=== PATIENT | male | born 1985 | race Hispanic/Latino ===

== ENCOUNTER 2019-05-07 19:10 | Emergency (ER) | payer BC ==
[2019-05-07] MEDS ORDERED: KETOROLAC 30 MG/ML INJ ONE (19:48)
[2019-05-07 19:56] LABS: Absolute Lymphocytes (CBC) 3.1 K/uL (0.7-4.9); Basophils % 0.4 % (0-1.3); Lymphocytes % 25.4 % (15.3-44.8); MPV 8.1 fL (7.6-11.3); RBC Red Blood Cell Count 4.79 M/uL (4.33-5.43)
--- NOTE | 2019-05-07 20:04 | RAD REPORT ---
EXAM DESCRIPTION: CT - Stone Protocol - 05/07/2019 7:53 pm CLINICAL HISTORY: Left lower abdominal pain, testicular tenderness and swelling COMPARISON: None. TECHNIQUE: Axial 5 mm thick images were obtained without oral or IV contrast. The [id number] span s the entirety of the system partially obscuring uppermost abdomen and lung bases. All CT scans are performed using dose optimization technique as appropriate and may include automated exposure control or mA/KV adjustment according to patient size. FINDINGS: No hydronephrosis is present and no obstructing ureteral calculi. No suspicious renal mass es. Isodense masses and pyelonephritis are not excluded on a stone protocol CT scan. No urinary bladd er suspicious finding. No significant adrenal finding. Imaged portions of the liver, spleen and pancreas show no suspicious findings on non-contrast imaging . Liver attenuation is borderline fatty infiltrated. Gallbladder is contracted. No acute gallbladder or biliary tree finding. No suspicious bowel findings. Appendix is normal. No hernia, mass or bulky lymphadenopathy noted. No free air, free fluid or inflammatory stranding. No inguinal lymphadenopathy. No significant bony abnormality. IMPRESSION: No hydronephrosis or obstructing calculus. No acute finding seen. Isodense masses and pyelonephritis are not excluded on stone protocol technique. No inguinal hernia or other abnormality to explain left lower quadrant symptoms.
[2019-05-07 20:12] LABS: ALT/SGPT 32 U/L (12-78); AST/SGOT 12 U/L (15-37); Albumin 3.7 g/dL (3.4-5.0); Alkaline Phosphatase 58 U/L (45-117); BUN Blood Urea Nitrogen 16 mg/dL (7-18); Bicarbonate 28 mmol/L (21-32); Bilirubin Direct < 0.1 mg/dL (0-0.2); Bilirubin Total 0.3 mg/dL (0.2-1.0); Glucose Level 86 mg/dL (74-106); Lipase 127 U/L (73-393); Potassium 4.2 mmol/L (3.5-5.1); Protein, Total 7.1 g/dL (6.4-8.2); Sodium Level 141 mmol/L (136-145)
[2019-05-07 20:58] LABS: Urine Bacteria <20 /HPF (NONE SEEN); Urine Culture Reflex Order NOT NEEDED; Urine RBC NONE SEEN /HPF (NONE SEEN)
[2019-05-07 20:59] LABS: Urine Blood NEGATIVE (NEG); Urine Glucose NEGATIVE (NEG); Urine Protein NEGATIVE (NEG)
--- NOTE | 2019-05-07 21:36 | EDPHYS ---
Physician Documentation [facility] Name: Ruel Mnuiz Age: 34 yrs Sex: Male : 1985 Arrival Date: 05/07/2019 Time: 19:14 Bed 25 Private MD: ED Physician Navi Collier HPI: 05/07 19:45 This 34 yrs old Male presents to ER via Ambulatory with complaints of cp Abdominal Pain, Groin Pain. 19:45 The patient presents with abdominal pain in the left lower quadrant, left groin. Onset: cp The symptoms/episode began/occurred yesterday. Associated signs and symptoms: Pertinent positives: testicular pain. Historical: - Allergies: 19:22 No Known Allergies; aj1 - Home Meds: 19:22 carvedilol oral oral [Active]; Adderall XR Oral [Active]; Amoxicillin Oral [Active]; aj1 - PMHx: 19:22 ADD/ADHD; Hypertension; aj1 - Immunization history:: Flu vaccine is not up to date. - Social history:: Smoking status: Patient uses tobacco products, denies chronic smoking, but will smoke occasionally. - Ebola Screening: : Patient denies travel to an Ebola-affected area in the 21 days before illness onset. ROS: 19:55 Constitutional: Negative for body aches, chills, fever, poor PO intake. cp 19:55 Eyes: Negative for injury, pain, redness, and discharge. cp 19:55 ENT: Negative for drainage from ear(s), ear pain, sore throat, difficulty swallowing, difficulty handling secretions. 19:55 Cardiovascular: Negative for chest pain. 19:55 Respiratory: Negative for cough, shortness of breath, wheezing. 19:55 Abdomen/GI: Positive for abdominal pain, of the left lower quadrant and left groin and left testicle, Negative for vomiting, diarrhea, constipation, black/tarry stool, rectal bleeding. 19:55 Back: Negative for pain at rest, pain with movement. 19:55 : Positive for testicular pain Negative for hematuria, burning with urination. 19:55 All other systems are negative. Exam: 20:00 Constitutional: The patient appears in no acute distress, alert, awake, non-toxic, well cp developed, well nourished. 20:00 Head/Face: Normocephalic, atraumatic. cp 20:00 Eyes: Periorbital structures: appear normal, Conjunctiva: normal, no exudate, no injection, Lids and lashes: appear normal, bilaterally. 20:00 ENT: External ear(s): are unremarkable, Nose: is normal, Mouth: Lips: moist, Oral mucosa: moist, Posterior pharynx: is normal, airway is patent, no erythema, no exudate. 20:00 Chest/axilla: Inspection: normal, Palpation: is normal, no crepitus, no tenderness. 20:00 Cardiovascular: Rate: normal, Rhythm: regular. 20:00 Respiratory: the patient does not display signs of respiratory distress, Respirations: normal, no use of accessory muscles, no retractions, no splinting, no tachypnea, labored breathing, is not present, Breath sounds: are clear throughout, no decreased breath sounds. 20:00 Abdomen/GI: Inspection: abdomen appears normal, Bowel sounds: active, all quadrants, Palpation: soft, in all quadrants, mild abdominal tenderness, in the left lower quadrant, rebound tenderness, is not appreciated, involuntary guarding, is not appreciated. 20:00 : Male external genitalia: tenderness, of the left testicle is noted, that is mild. 20:00 Skin: no rash present. Vital Signs: 19:22 BP 135 / 94; Pulse 93; Resp 18; Temp 98.1; Pulse Ox 100% on R/A; Weight 104.33 kg (R); aj1 Height 5 ft. 8 in. (172.72 cm) (R); 20:32 BP 117 / 80; Pulse 83; Resp 17 S; Pulse Ox 100% on R/A; ca1 21:35 BP 121 / 79; Pulse 87; Resp 17 S; Pulse Ox 100% on R/A; ca1 19:22 Body Mass Index 34.97 (104.33 kg, 172.72 cm) aj1 MDM: 19:29 Patient medically screened. cp 20:00 Differential diagnosis: diverticulitis, Pyelonephritis, Testicular Torsion, cp Ureterolithiasis, urinary tract infection. 21:31 Data reviewed: vital signs, nurses notes, lab test result(s), radiologic studies, CT cp scan, ultrasound. 21:31 Counseling: I had a detailed discussion with the patient and/or guardian regarding: the cp historical points, exam findings, and any diagnostic results supporting the discharge/admit diagnosis, lab results, radiology results, to return to the emergency department if symptoms worsen or persist or if there are any questions or concerns that arise at home. Response to treatment: the patient's symptoms have mildly improved after treatment. 05/07 19:42 Order name: Basic Metabolic Panel; Complete Time: 20:15 /18 21:25 Interpretation: Normal except: GFR 71. 05/07 19:42 Order name: CBC with Diff; Complete Time: 20:15 05/07 20:15 Interpretation: Normal except: WBC 12.1. 05/07 19:42 Order name: Creatinine for Radiology; Complete Time: 20:15 05/07 19:42 Order name: Hepatic Function; Complete Time: 20:15 05/07 19:42 Order name: Lipase; Complete Time: 20:15 05/07 19:42 Order name: Urine Microscopic Only; Complete Time: 21:25 cp 05/07 21:25 Interpretation: Reviewed. 05/07 19:42 Order name: IV Saline Lock; Complete Time: 19:45 05/07 19:42 Order name: Labs collected and sent; Complete Time: 19:45 05/07 19:42 Order name: Urine Dipstick-Ancillary (obtain specimen); Complete Time: 20:21 05/07 19:42 Order name: CT Stone Protocol; Complete Time: 20:25 05/07 20:28 Order name: Urine Dipstick--Ancillary (enter results); Complete Time: 21:25 em1 05/07 21:25 Interpretation: Reviewed. 05/07 20:32 Order name: US Scrotum Testicles cp Administered Medications: 19:48 Drug: TORadol - Ketorolac 15 mg Route: IVP; Site: left antecubital; ca1 20:25 Follow up: Response: No adverse reaction; Pain is decreased ca1 Disposition: 05/07/19 21:32 Discharged to Home. Impression: Lower abdominal pain, unspecified. - Condition is Stable. - Discharge Instructions: Abdominal Pain, Adult, Form - Excuse from Work, School, or Physical Activity. - Prescriptions for Ibuprofen 800 mg Oral Tablet - take 1 tablet by ORAL route every 8 hours As needed take with food; 30 tablet. - Work release form, Medication Reconciliation Form, Thank You Letter, Antibiotic Education, Prescription Opioid Use form. - Follow up: Private Physician; When: 2 - 3 days; Reason: Worsening of condition. - Problem is new. - Symptoms have improved. Signatures: Dispatcher [employer] Ursula Cifuentes RN RN aj1 Marco Sanabria PA PA cp Castro, Manjula RN RN ca1 Corrections: (The following items were deleted from the chart) 21:42 21:32 05/07/2019 21:32 Discharged to Home. Impression: Lower abdominal pain, ca1 unspecified. Condition is Stable. Forms are Medication Reconciliation Form, Thank You Letter, Antibiotic Education, Prescription Opioid Use. Follow up: Private Physician; When: 2 - 3 days; Reason: Worsening of condition. Problem is new. Symptoms have improved. cp
--- NOTE | 2019-05-07 21:36 | ER ---
Nurse's Notes [facility] Name: Ruel Muniz Age: 34 yrs Sex: Male : 1985 Arrival Date: 05/07/2019 Time: 19:14 Bed 25 Private MD: Diagnosis: Lower abdominal pain, unspecified Presentation: 05/07 19:21 Presenting complaint: Patient states: Since yesterday he has been having left lower aj1 abdominal pain. Late last night he noticed that one of his testicles was swollen and tender. Denies fever. Transition of care: patient was not received from another setting of care. Onset of symptoms was May 07, 2019. Risk Assessment: Do you want to hurt yourself or someone else? Patient reports no desire to harm self or others. Initial Sepsis Screen: Does the patient meet any 2 criteria? No. Patient's initial sepsis screen is negative. Does the patient have a suspected source of infection? No. Patient's initial sepsis screen is negative. Care prior to arrival: None. 19:21 Method Of Arrival: Ambulatory aj1 19:21 Acuity: WILTON 3 aj1 Triage Assessment: 19:22 General: Appears in no apparent distress. comfortable, Behavior is calm, cooperative, aj1 appropriate for age. Pain: Complains of pain in left lower quadrant and pelvis. Pain: Pain currently is 7 out of 10 on a pain scale. Neuro: Level of Consciousness is awake, alert, obeys commands. Cardiovascular: Patient's skin is warm and dry. Respiratory: Airway is patent Respiratory effort is even, unlabored, Respiratory pattern is regular, symmetrical. GI: Reports vomiting, Patient currently denies diarrhea. Historical: - Allergies: 19:22 No Known Allergies; aj1 - Home Meds: 19:22 carvedilol oral oral [Active]; Adderall XR Oral [Active]; Amoxicillin Oral [Active]; aj1 - PMHx: 19:22 ADD/ADHD; Hypertension; aj1 - Immunization history:: Flu vaccine is not up to date. - Social history:: Smoking status: Patient uses tobacco products, denies chronic smoking, but will smoke occasionally. - Ebola Screening: : Patient denies travel to an Ebola-affected area in the 21 days before illness onset. Screenin:32 Abuse screen: Denies threats or abuse. Denies injuries from another. Nutritional ca1 screening: No deficits noted. Tuberculosis screening: No symptoms or risk factors identified. Fall Risk IV access (20 points). Assessment: 19:32 General: Appears in no apparent distress. comfortable, Behavior is calm, cooperative, ca1 appropriate for age. Pain: Complains of pain in groin, left femoral area, suprapubic area and left inguinal area and left lower quadrant Pain currently is 8 out of 10 on a pain scale. Pain began 1 day ago. Is intermittent. Neuro: Level of Consciousness is awake, alert, obeys commands, Oriented to person, place, time, situation. Cardiovascular: Heart tones S1 S2 present Capillary refill < 3 seconds Patient's skin is warm and dry. Respiratory: Airway is patent Respiratory effort is even, unlabored, Respiratory pattern is regular, symmetrical, Breath sounds are clear bilaterally. GI: Abdomen is flat, non-distended, Bowel sounds present X 4 quads. Abd is soft X 4 quads Abdomen is tender to palpation in left lower quadrant Reports nausea, vomiting, last night. :. : Reports pain in left scrotum, since yesterday. EENT: No deficits noted. No signs and/or symptoms were reported regarding the EENT system. Derm: Skin is intact, is healthy with good turgor, Skin is pink, warm \T\ dry. Musculoskeletal: Circulation, motion, and sensation intact. Capillary refill < 3 seconds, Range of motion: intact in all extremities. 20:32 Reassessment: Patient appears in no apparent distress at this time. Patient and/or ca1 family updated on plan of care and expected duration. Pain level reassessed. Patient is alert, oriented x 3, equal unlabored respirations, skin warm/dry/pink. 21:35 Reassessment: Patient appears in no apparent distress at this time. Patient is alert, ca1 oriented x 3, equal unlabored respirations, skin warm/dry/pink. Vital Signs: 19:22 BP 135 / 94; Pulse 93; Resp 18; Temp 98.1; Pulse Ox 100% on R/A; Weight 104.33 kg (R); aj1 Height 5 ft. 8 in. (172.72 cm) (R); 20:32 BP 117 / 80; Pulse 83; Resp 17 S; Pulse Ox 100% on R/A; ca1 21:35 BP 121 / 79; Pulse 87; Resp 17 S; Pulse Ox 100% on R/A; ca1 19:22 Body Mass Index 34.97 (104.33 kg, 172.72 cm) aj1 ED Course: 19:14 Patient arrived in ED. cf2 19:21 Triage completed. aj1 19:22 Arm band placed on Patient placed in an exam room. aj1 19:24 Marco Sanabria PA is PHCP. cp 19:24 Navi Collier MD is Attending Physician. cp 19:25 Manjula Erazo RN is Primary Nurse. ca1 19:32 Patient has correct armband on for positive identification. Placed in gown. Bed in low ca1 position. Call light in reach. Side rails up X 1. Pulse ox on. NIBP on. Warm blanket given. 19:45 No provider procedures requiring assistance completed. Initial lab(s) drawn, by me, ca1 sent to lab. Inserted saline lock: 20 gauge in left antecubital area, using aseptic technique. Blood collected. 19:52 CT completed. Patient tolerated procedure well. Patient moved to CT via wheelchair. ga Patient moved back from CT. 19:57 CT Stone Protocol Sent. rv 20:01 CT Stone Protocol In Process Unspecified. EDMS 21:12 US Scrotum Testicles In Process Unspecified. EDMS 21:41 IV discontinued, intact, bleeding controlled, No redness/swelling at site. Pressure ca1 dressing applied. Administered Medications: 19:48 Drug: TORadol - Ketorolac 15 mg Route: IVP; Site: left antecubital; ca1 20:25 Follow up: Response: No adverse reaction; Pain is decreased ca1 Outcome: 21:32 Discharge ordered by MD. cp 21:41 Discharged to home ambulatory, with significant other. ca1 21:41 Condition: stable 21:41 Discharge instructions given to patient, Instructed on discharge instructions, follow up and referral plans. Demonstrated understanding of instructions, follow-up care, medications, Prescriptions given X 1. 21:42 Patient left the ED. ca1 Signatures: Dispatcher [employer] EDMS Ursula Martinez RN RN aj1 Marco Sanabria PA PA cp Armen Hernandez Ronaldo, RN RN rv Manjula Erazo RN RN ca1 Madisyn Campbell cf2 Corrections: (The following items were deleted from the chart) 19:40 19:32 GI: Abdomen is flat, non-distended, Bowel sounds present X 4 quads. Abd is soft X ca1 4 quads Abdomen is tender to palpation in left lower quadrant ca1
--- NOTE | 2019-05-07 22:27 | RAD REPORT ---
EXAM DESCRIPTION: US - Scrotum Testicles - 05/07/2019 9:10 pm CLINICAL HISTORY: left testicle pain COMPARISON: No comparisons FINDINGS: The right testicle 3.4 x 3.2 x 2.5 cm. No intratesticular masses or evidence of testicular torsion. The left testicle 4.6 x 3.4 x 2.3 cm. No intratesticular masses or evidence of testicular torsion. Eq uivocal increase in flow to the left testicle. Both epididymides are normal in size and appearance. Mild fluid is present in the scrotal sac bilaterally. IMPRESSION: Equivocal findings of mild left orchitis. No evidence of testicular torsion or mass.
[2019-05-08 03:07] VITALS: TEMP 98.1; O2SAT 100
[2019-05-08 03:09] VITALS: BP 121/79
== END 2019-05-07 21:42 | disposition home or self-care (01) ==
LOC: ER 19:10
DX: R10.30 Lower abdominal pain, unspecified (principal); I10 Essential (primary) hypertension; F90.9 Attention-deficit hyperactivity disorder, unspecified type; Z72.0 Tobacco use
CPT/HCPCS: 36415; 74176; 76377; 76870; 80048; 80076; 81003; 81015; 83690; 85025

== ENCOUNTER 2021-04-06 11:40 | Emergency (ER) | payer BC ==
--- OUTSIDE RECORDS SUMMARY | 2021-04-06 11:49 | XMS REPORT | Continuity of Care Document ---
:1985 Author Organization [facility] t Address [address] [place] [address] [address] [place] [address] Care Team Providers Name Role Phone Staewen Attending Clinician Unavailable Problems This patient has no known problems. Allergies, Adverse Reactions, Alerts This patient has no known allergies or adverse reactions. Medications This patient has no known medications. Procedures This patient has no known procedures. Results Test Description Test Time Test Comments Results Result [facility] e Comments MRI ELBOW JNT LT 2021-03-15 WO 09:31:46 [facility] : 1985 Sex: M CL INICAL INDICATION: S46.219D, Strain of muscle, fascia and tendon of other parts of biceps, unspecified arm, subsequent encounter . MODALITY: [employer] 3T MRITECHNIQUE: Multiplanar multi sequence MRI examination of the left elbow was performed.IMPRESSION: 1. Moderate grade partial tear of the distal biceps tendon and grade 2 strain involving the distal biceps myotendinous junction.2. Fluid in the bicipital radial bursa.3. Small left elbow joint effusion.FINDINGS:COM PARISON: noneTENDONS: Mild common extensor tendinosis is present. The common extensor tendon is intact. The common flexor tendon is intact. Triceps and brachialis tendons are intact. Moderate grade partial tear is evident involving the short head component of the distal biceps tendon. The long head component of the tendon remains intact. There is edema and apparent mild architectural distortion at the distal biceps myotendinous junction, consistent with grade 2 strain. Small fluid collection localizes to the bicipitoradial bursa.LIGAMENTS: Ulnar collateral ligament is intact. The anterior band appears unremarkable. Lateral ulnar collateral ligament is intact.OSSEOUS STRUCTURES AND CARTILAGINOUS SURFACES: No fractures or destructive osseous lesions are detected. Marrow signal is unremarkable. No high-grade chondral lesions are detected.CUBITAL TUNNEL: Mass or cyst within the cubital tunnel is not seen. Ulnar nerve appears unremarkable.MISCELLA NEOUS FINDINGS: Small left elbow joint effusion is present.
--- NOTE | 2021-04-06 13:12 | RAD REPORT ---
EXAM DESCRIPTION: RAD - Chest Single View - 04/06/2021 12:49 pm CLINICAL HISTORY: COVID;Cough COMPARISON: None TECHNIQUE: AP portable chest image was obtained 04/06/2021 12:49 pm . FINDINGS: Lung volumes are low. No focal lung parenchymal process confirmed. Heart and vasculature a re normal. No measurable pleural effusion and no pneumothorax. No acute bony abnormality seen. No acu te aortic findings suspected. IMPRESSION: No acute cardiopulmonary process.
--- NOTE | 2021-04-06 15:59 | EDPHYS ---
Physician Documentation [facility] Name: Ruel Muniz Age: 35 yrs Sex: Male : 1985 Arrival Date: 04/06/2021 Time: 11:44 Bed DX2 Private MD: ED Physician Negro Carver HPI: 04/06 15:48 This 35 yrs old Male presents to ER via Ambulatory with complaints of Covid +, rn sob. 15:48 The patient has shortness of breath at rest, with light activity. Onset: The rn symptoms/episode began/occurred today. Duration: The symptoms are intermittent. The patient's shortness of breath is aggravated by exertion, light activity, is alleviated by rest. Associated signs and symptoms: Pertinent positives: non-productive cough, fever, Pertinent negatives: chest pain, hemoptysis, loss of consciousness. Severity of symptoms: At their worst the symptoms were moderate in the emergency department the symptoms have improved. The patient has not experienced similar symptoms in the past. The patient has not recently seen a physician. Patient reports took home test for Covid and was positive, now 3 days symptomatic, today noticed a little more difficulty breathing and fever. Took Tylenol and now symptoms have improved. No history of DVT or PE.. Historical: - Home Meds: 12:39 Adderall XR Oral [Active]; carvedilol Oral [Active]; testosterone cypionate (bulk) kl miscellaneous [Active]; Zithromax Z-Rey 250 mg Oral cap [Active]; Zinc Sulfate Oral [Active]; - PMHx: 12:39 ADD/ADHD; Hypertension; kl - Immunization history:: Adult Immunizations not up to date, Client reports having NOT received the Covid vaccine. - Social history:: Smoking status: Patient denies any tobacco usage or history of. - Family history:: not pertinent. - Hospitalizations: : No recent hospitalization is reported. ROS: 15:52 Constitutional: Positive for fever and chills Eyes: Negative for injury, pain, redness, rn and discharge, Neck: Negative for injury, pain, and swelling, Cardiovascular: Negative for chest pain, palpitations, and edema, Respiratory: Positive for shortness of breath and cough Abdomen/GI: Negative for abdominal pain Back: Negative for injury and pain, : Negative for injury, bleeding, discharge, and swelling, MS/Extremity: Negative for injury and deformity, Skin: Negative for injury, rash, and discoloration, Neuro: Negative for numbness, tingling, and seizure. 15:52 All other systems are negative. Exam: 15:52 Constitutional: This is a well developed, well nourished patient who is awake, alert, rn and in no acute distress. Head/Face: Normocephalic, atraumatic. Eyes: Periorbital areas with no swelling, redness, or edema. ENT: No stridor Cardiovascular: Regular rate and rhythm. No pulse deficits. Respiratory: Speaking full sentences, unlabored. No increased work of breathing, no retractions or nasal flaring. Abdomen/GI: Soft, nontender Skin: Warm, dry MS/ Extremity: Pulses equal, no cyanosis. Neuro: Awake and alert, GCS 15, oriented to person, place, time, and situation. 15:55 ECG was reviewed by the Attending Physician. rn Vital Signs: 12:34 BP 106 / 73; Pulse 81; Resp 18; Temp 99.2; Pulse Ox 96% on R/A; Weight 99.79 kg; Height kl 5 ft. 8 in. (172.72 cm); Pain 2/10; 15:54 BP 118 / 74; Pulse 82; Resp 16; Temp 99.7(O); Pulse Ox 98% on R/A; dh3 12:34 Body Mass Index 33.45 (99.79 kg, 172.72 cm) kl MDM: 15:21 Patient medically screened. rn 15:57 Differential diagnosis: Bronchitis pneumonia, Pneumothorax Psychogenic Covid. Data rn reviewed: vital signs, nurses notes, EKG, radiologic studies, plain films, and as a result, I will discharge patient. Data interpreted: gambling monitor: rate is 82 beats/min, rhythm is normal sinus rhythm, regular, with no ectopy, Interpretation: normal rate, normal rhythm, Pulse oximetry: on room air is 98 %. Interpretation: normal. Test interpretation: by ED physician or midlevel provider: ECG, plain radiologic studies, Chest x-ray without acute infiltrate or pneumothorax. Counseling: I had a detailed discussion with the patient and/or guardian regarding: the historical points, exam findings, and any diagnostic results supporting the discharge/admit diagnosis, radiology results, the need for outpatient follow up, to return to the emergency department if symptoms worsen or persist or if there are any questions or concerns that arise at home. 15:58 Special discussion: I discussed with the patient/guardian in detail that at this point rn there is no indication for admission to the hospital. It is understood, however, that if the symptoms persist or worsen the patient needs to return immediately for re-evaluation. 15:58 ED course: Chest x-ray without acute infiltrate. No oxygen requirements. Covid positive rn at home. Reports PCP already wrote for azithromycin and hydroxychloroquine. Recommended addition of vitamin D and N-acetylcysteine.. 04/06 12:20 Order name: XRAY Chest (1 view); Complete Time: 15:11 rn 04/06 15:11 Order name: EKG; Complete Time: 15:12 rn 04/06 15:11 Order name: EKG - Nurse/Tech; Complete Time: 15:56 rn 04/06 15:29 Order name: Misc. Order: repeat vitals; Complete Time: 15:56 rn EC:55 Rate is 85 beats/min. Rhythm is regular. QRS [place] is Normal. CA interval is normal. QRS rn interval is normal. QT interval is normal. No Q waves. T waves are Inverted in leads III, aVF. No ST changes noted. Clinical impression: NSR w/ Non-specific ST/T Changes. Interpreted by me. Reviewed by me. Administered Medications: No medications were administered Disposition Summary: 04/06/21 15:59 Discharge Ordered Location: Home rn Problem: new rn Symptoms: have improved rn Condition: Stable rn Diagnosis - SARS-associated coronavirus as the cause of diseases classified elsewhere rn Followup: rn - With: Private Physician - When: As needed - Reason: Recheck today's complaints, Re-evaluation by your physician Discharge Instructions: - Discharge Summary Sheet rn - COVID-19 rn - 10 Things You Can Do to Manage Your COVID-19 Symptoms at Home - [facility] rn - Viral Illness, Adult rn - Prevent the Spread of COVID-19 if You Are Sick - CDC rn Forms: - Medication Reconciliation Form rn - Thank You Letter rn - Antibiotic 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
--- NOTE | 2021-04-06 15:59 | ER ---
Nurse's Notes [facility] Name: Ruel Muniz Age: 35 yrs Sex: Male : 1985 Arrival Date: 04/06/2021 Time: 11:44 Bed DX2 Private MD: Diagnosis: SARS-associated coronavirus as the cause of diseases classified elsewhere Presentation: 04/06 12:34 Chief complaint: Patient states: Reports chest tightness reports ill x 3 days positive kl COVID test today. Coronavirus screen: Client denies travel out of the [place] in the last 14 days. congestion, cough unrelated to allergies, diarrhea, fever, headache, Client presents with at least one sign or symptom that may indicate coronavirus-19. Standard/surgical mask placed on the client. Provider contacted for isolation considerations. Client reports previous positive COVID test result. Date of collection: April 06, 2021. 12:34 Method Of Arrival: Ambulatory kl 12:42 Note Seen by PCP prescribed Z Pack. kl 12:43 Acuity: WILTON 3 kl 16:17 Risk Assessment: Do you want to hurt yourself or someone else? Patient reports no kg desire to harm self or others. 16:18 Ebola Screen: Patient negative for fever greater than or equal to 101.5 degrees kg Fahrenheit, and additional compatible Ebola Virus Disease symptoms Patient denies exposure to infectious person. Patient denies travel to an Ebola-affected area in the 21 days before illness onset. Initial Sepsis Screen: Does the patient meet any 2 criteria? No. Patient's initial sepsis screen is negative. Does the patient have a suspected source of infection? No. Patient's initial sepsis screen is negative. Onset of symptoms was April 03, 2021. Triage Assessment: 16:17 General: Appears in no apparent distress. kg Historical: - Home Meds: 12:39 Adderall XR Oral [Active]; carvedilol Oral [Active]; testosterone cypionate (bulk) kl miscellaneous [Active]; Zithromax Z-Rey 250 mg Oral cap [Active]; Zinc Sulfate Oral [Active]; - PMHx: 12:39 ADD/ADHD; Hypertension; kl - Immunization history:: Adult Immunizations not up to date, Client reports having NOT received the Covid vaccine. - Social history:: Smoking status: Patient denies any tobacco usage or history of. - Family history:: not pertinent. - Hospitalizations: : No recent hospitalization is reported. Screenin:16 Abuse screen: Denies threats or abuse. Denies injuries from another. Nutritional kg screening: No deficits noted. Tuberculosis screening: No symptoms or risk factors identified. Fall Risk None identified. Assessment: 16:01 General: Appears in no apparent distress. Behavior is calm, cooperative, appropriate kg for age, quiet. Pain:. 16:16 Pain: Complains of pain in Head Pain does not radiate. Pain currently is 3 out of 10 on kg a pain scale. at worst was 5 out of 10 on a pain scale. level that patient reports is acceptable is 3 out of 10 on a pain scale. Quality of pain is described as aching. Neuro: No deficits noted. Cardiovascular: No deficits noted. Respiratory: Reports shortness of breath at rest on exertion cough that is productive, Airway is patent Respiratory effort is even, unlabored, relaxed, Respiratory pattern is regular, Breath sounds are clear bilaterally. GI: No deficits noted. : No deficits noted. Vital Signs: 12:34 BP 106 / 73; Pulse 81; Resp 18; Temp 99.2; Pulse Ox 96% on R/A; Weight 99.79 kg; Height kl 5 ft. 8 in. (172.72 cm); Pain 2/10; 15:54 BP 118 / 74; Pulse 82; Resp 16; Temp 99.7(O); Pulse Ox 98% on R/A; dh3 12:34 Body Mass Index 33.45 (99.79 kg, 172.72 cm) ED Course: 11:44 Patient arrived in ED. ds1 12:43 Triage completed. kl 12:49 XRAY Chest (1 view) In Process Unspecified. EDMS 15:10 Negro Carver MD is Attending Physician. rn 15:56 EKG done, by radiation technician. reviewed by Negro Carver MD. 3 16:13 Cyndy May, VIKASH is Primary Nurse. kg 16:16 No provider procedures requiring assistance completed. Patient did not have IV access kg during this emergency room visit. 16:16 Patient has correct armband on for positive identification. kg 16:17 Arm band placed on. kg Administered Medications: No medications were administered Outcome: 15:59 Discharge ordered by . rn 16:16 Discharged to home ambulatory. kg 16:16 Condition: good 16:16 Discharge instructions given to patient, Instructed on discharge instructions, follow up and referral plans. Demonstrated understanding of instructions, follow-up care, medications. 16:18 Patient left the ED. kg Signatures: Dispatcher [employer] EDMai Clarke, RN Meghann Orozco ds1 Negro Carver MD MD rn Herrera, Yessy dh3 Cyndy May RN RN kg
--- NOTE | 2021-04-06 16:23 | EKG ---
Test Date: 2021-04-06 Test Time: 15:50:55 Form Stripper: SHAHNAZ MEASUREMENT RESULTS: Intervals: Rate: 85 NV: 130 QRSD: 84 QT: 336 QTc: 399 [place]: P: 41 NV: 130 QRS: 78 T: -22 INTERPRETIVE STATEMENTS: Normal sinus rhythm Possible Inferior infarct, age undetermined Abnormal ECG No previous ECG available for comparison Electronically Signed On 04-06-21 16:22:37 CDT by Jayant Ghotra
[2021-04-06 16:30] VITALS: BP 118/74; TEMP 99.7; O2SAT 98
== END 2021-04-06 16:18 | disposition home or self-care (01) ==
LOC: ER 11:40
DX: U07.1 COVID-19 (principal); I10 Essential (primary) hypertension; F90.9 Attention-deficit hyperactivity disorder, unspecified type
CPT/HCPCS: 71045; 93005; 99283

== ENCOUNTER 2024-02-10 15:29 | Emergency (ER) | payer OTHER ==
--- OUTSIDE RECORDS SUMMARY | 2024-02-10 15:32 | XMS REPORT | Continuity of Care Document ---
Author Name Unknown Address [address] [facility] [address] [place], [place] [id number] [place] [address] thconnect Address [address] [facility] [address] [place] [address] Care Team Providers Care Professor Of Fine Art Name Role Phone FANG ALCOCER Attending Clinician Unavailable BALDEV OLIVIA Attending Clinician Unava ilable Payers Payer Name Policy Type Policy Number Effective Date Expirati on Date Source [employer]ET[employer] 2 [id number] 2023 00:00:00 Social History Social Habit Start Date Stop Date Quantity Comments Source Sexual orientation Fady Ashby - External History of tobacco use Cigarette Smoker Cindy rueda - External Alcohol intake 2023-11-01 00:00:00 2023-11-01 00:00:00 Current drinker of alcohol (finding) Cindy Ashby - External History of Social function 2023-11-01 00:00:00 2023-11-01 00:00:00 Cindy Ashby - External Alcohol Comment 2023-11-01 00:00:00 2023-11-01 00:00:00 socially Cindy Ashby - External Sex Assigned At 1985 00:00:00 1985 00:00:00 Cindy Ashby - External Smoking Status Start Date Stop Date Source Ex-smoker 2023-11-01 00:00:00 2023-11-01 00:00:00 Fady Mooney Medications Ordered Medication Name Filled Medication Name Start Date Stop Date Current Medication? Ordering Clinician Indication Dosage Frequency Signature (SIG) Comments Components Source Amphetamine -Dextroamph etamine (ADDERALL XR, 25MG,) 25 MG oral Capsule 24 Hour Sustained Release -13 00:00: 00 01-30 04:59 :00 Yes [id number] 25mg Take 1 capsule (25 mg total) by mouth every morning. Cindy de la o Amphetamine -Dextroamph etamine (ADDERALL XR, 25MG,) 25 MG oral Capsule 24 Hour Sustained Release 11-30 00:00: 00 12-31 04:59 :00 Yes [id number] 25mg Take 1 capsule (25 mg total) by mouth every morning. Cindy de la o Amphetamine -Dextroamph etamine (ADDERALL XR, 25MG,) 25 MG oral Capsule 24 Hour Sustained Release 10-31 10:50: 35 Yes 1{capsu le} Take 1 capsule by mouth daily. Cindy de la o Anastrozole 1 MG oral Tablet 10-31 10:50: 36 Yes 1mg Take 1 tablet (1 mg total) by mouth. Cnidy de la o Nebivolol HCl 20 MG oral Tablet 10-31 00:00: 00 Yes [id number] 20mg Take 1 tablet (20 mg total) by mouth daily. Cindy de la o Amphetamine -Dextroamph etamine (ADDERALL XR, 25MG,) 25 MG oral Capsule 24 Hour Sustained Release 10-31 00:00: 00 12-01 04:59 :00 No [id number] 25mg Take 1 capsule (25 mg total) by mouth every morning. Cindy de la o Nebivolol HCl 20 MG oral Tablet 10-25 00:00: 00 10-31 00:00 :00 No Cindy de la o Vital Signs Vital Name Observation Time Observation Value Comments S kenyatta Systolic blood pressure 2023-11-01 15:43:00 120 mm[Hg] Cindy page - External Diastolic blood pressure 2023-11-01 15:43:00 82 mm[Hg] Cindy Correia ld - External Heart rate 2023-11-01 15:43:00 82 /min Rashawn Ashby - External Body temperature 2023-11-01 15:43:00 36.33 Nancy Cindy Ashby - External Respiratory rate 2023-11-01 15:43:00 14 /min Cindy Ashby - External Body height 2023-11-01 15:43:00 172.7 cm Barbara Ashby - External Body weight 2023-11-01 15:43:00 99.791 kg Barbara Ashby - External BMI 2023-11-01 15:43:00 33.45 kg/m2 Barbara Ashby - External Encounters Start Date/Time End Date/Time Encounter Type Admission Type Attending [facility] Facility Care Department Encounter ID Source 2024-02-01 10:15:00 2024-02-01 10:15:00 Outpatient FANG ALCOCER [id number] Cindy Ashby 2023-11-01 11:00:00 2023-11-01 11:00:00 Outpatient BALDEV OLIVIA [id number] Cindy Ashby Notes Date/Time Note Provider Source 2023-11-01 10:50:54 [id number]:50:54F ormatting of this note is different from the original.Chief ComplaintPatient [facility]. Needing new PCP. Last annual over a year ago.[place] [id number] [id number]:52:52Nurse [id number] for patient [id number] NoteLNNARRATIVEFormatted C-CDA narrative textKELRosendoSymone Syxrzg[address] [place], [place] [id number] [id number]|[id number] [facility]"
--- NOTE | 2024-02-10 16:34 | RAD REPORT ---
EXAM DESCRIPTION: RAD - Chest Single View - 02/10/2024 4:27 pm CLINICAL HISTORY: CHEST PAIN COMPARISON: Chest Single View dated 01/26/2024; Chest Single View dated 04/06/2021 FINDINGS: Lines: None. Lungs: No evidence of edema or pneumonia. Pleural: No significant pleural effusions or pneumothorax. Cardiac: The heart size is within normal limits. Mediastinum: Within normal limits. Bones: No acute fractures. Other: None IMPRESSION: No acute cardiopulmonary disease.
[2024-02-10] MEDS ORDERED: LORazepam 2 MG/ML VIAL ONE (16:35)
[2024-02-10 16:47] LABS: Absolute Eosinophils 0.1 K/uL (0-0.5); Absolute Lymphocytes (CBC) 1.6 K/uL (0.7-4.9); Absolute Monocytes 0.4 K/uL (0.1-1.3); Absolute Neutrophil 7.5 K/uL (1.8-8.0); Basophils % 0.5 % (0-1.3); Eosinophils % 0.7 % (0-4.4); Hematocrit 47.9 % (39.6-49.0); Hemoglobin 16.3 g/dL (13.6-17.9); Lymphocytes % 16.8 % (15.3-44.8); MCH 31.8 pg (27.0-35.0); MCHC 34.1 g/dL (32.0-36.0); MCV 93.4 fL (80-100); Monocytes % 3.8 % (3.3-12.3); Neutrophils % 78.2 % (41.7-73.7); Platelets 240 thou/uL (152-406); RBC Red Blood Cell Count 5.13 M/uL (4.33-5.43); Red Cell Distribution Width 14.5 % (12.1-15.2)
[2024-02-10 17:05] LABS: Albumin 3.9 g/dL (3.4-5.0); Albumin/Globulin Ratio 1.2 (1.1-1.8); Bilirubin Direct 0.3 mg/dL (0-0.2); Bilirubin Indirect, Calculated 0.7 mg/dL (0.2-0.8); Globulin 3.2 g/dL (2.3-3.5); Magnesium 2.4 mg/dL (1.6-2.4); Protein, Total 7.1 g/dL (6.4-8.2)
--- NOTE | 2024-02-10 17:51 | ER ---
Nurse's Notes [facility] Name: Ruel Muniz Age: 38 yrs Sex: Male : 1985 Arrival Date: 02/10/2024 Time: 15:29 Bed 8 Private MD: Diagnosis: Anxiety disorder, unspecified Presentation: 02/09 15:48 Chief complaint: Patient states: CP since last night. RUE tightness, pain for 2-3 days. ll1 Coronavirus screen: Client denies travel out of the [place] in the last 14 days. At this time, the client does not indicate any symptoms associated with coronavirus-19. Ebola Screen: Patient denies travel to an Ebola-affected area in the 21 days before illness onset. Initial Sepsis Screen: Does the patient meet any 2 criteria? No. Patient's initial sepsis screen is negative. Does the patient have a suspected source of infection? No. Patient's initial sepsis screen is negative. Risk Assessment: Do you want to hurt yourself or someone else? Patient reports no desire to harm self or others. Onset of symptoms was February 09, 2024. 15:48 Method Of Arrival: Ambulatory ll1 15:48 Acuity: WILTON 3 ll1 Triage Assessment: 16:01 General: Appears uncomfortable, Behavior is calm, cooperative, appropriate for age. ll1 Pain: Complains of pain in chest and right arm. Cardiovascular: Reports chest pain. Musculoskeletal: Reports pain in right arm. Historical: - Allergies: 15:47 No Known Allergies; ll1 - PMHx: 15:47 ADD/ADHD; Hypertension; ll1 - PSHx: 15:47 arm (en); ll1 - Immunization history:: Adult Immunizations up to date. - Infectious Disease History:: Denies. - Social history:: Smoking status: Patient denies any tobacco usage or history of. Screenin:17 [facility] ED Fall Risk Assessment (Adult) History of falling in the last 3 months, ap3 including since admission No falls in past 3 months (0 pts) Confusion or Disorientation No (0 pts) Intoxicated or Sedated No (0 pts) Impaired Gait No (0 pts) Mobility Assist Device Used No (0 pt) Altered Elimination No (0 pt) Score/Fall Risk Level 0 - 2 = Low Risk Oriented to surroundings, Maintained a safe environment, Educated pt \T\ family on fall prevention, incl call for assistance when getting out of bed, Assessed \T\ reinforced patient's understanding of fall precautions, Provided non-skid footwear, Hourly rounding (assess needs \T\ fall precautionary measures) done, Used ambulatory aids as needed (educated on \T\ assisted with), Used gait belt as appropriate. Abuse screen: Denies threats or abuse. Nutritional screening: No deficits noted. Tuberculosis screening: No symptoms or risk factors identified. Assessment: 16:15 General: Appears distressed, Behavior is anxious. Pain: Complains of pain in right arm ap3 and chest Pain does not radiate. Pain Quality of pain is described as tightness Pain began gradually, Is intermittent. Neuro: Level of Consciousness is awake, alert, obeys commands, Oriented to person, place, time, situation. Cardiovascular: Reports chest tightness Patient's skin is warm and dry. Respiratory: Airway is patent Respiratory effort is even, unlabored, Respiratory pattern is regular, symmetrical. Vital Signs: 16:01 BP 142 / 83; Pulse 60; Resp 18; Temp 98.5; Pulse Ox 100% ; Pain 6/10; ll1 17:53 BP 128 / 90; Pulse 63; Resp 18; Pulse Ox 97% on R/A; ap3 16:01 Pain Scale: Adult ll1 ED Course: 15:31 Patient arrived in ED. mg5 15:31 Mel Alfaro PA-C is PHCP. sb4 15:31 Dragan Carrion MD is Attending Physician. sb4 15:47 Arm band placed on Patient placed in an exam room, on a stretcher. EKG completed in ll1 triage. Results shown to MD. 15:48 Triage completed. ll1 16:15 Whitney Bowling, RN is Primary Nurse. ap3 16:17 No provider procedures requiring assistance completed. O2 via room air. ap3 16:28 XRAY Chest (1 view) In Process Unspecified. EDMS 16:32 Initial lab(s) drawn, by me, sent to lab. Inserted saline lock: 20 gauge in left ap3 antecubital area, using aseptic technique. Blood collected. 16:33 Patient has correct armband on for positive identification. Bed in low position. Call ap3 light in reach. Side rails up X 1. Adult w/ patient. pvc monitor on. Pulse ox on. NIBP on. 18:05 Provided Education on: discharge instructions. ap3 18:05 IV discontinued, intact, bleeding controlled, No redness/swelling at site. Pressure ap3 dressing applied. Administered Medications: 16:46 Drug: Ativan IVP 0.5 mg IVP once Route: IVP; Site: left antecubital; ap3 17:54 Follow up: Response: No adverse reaction; Anxiety decreased ap3 Medication: 16:17 VIS not applicable for this client. ap3 Outcome: 17:50 Discharge ordered by . mel4 18:04 Discharged to home ambulatory, with family, ap3 18:04 Condition: good 18:04 Discharge instructions given to patient, Instructed on discharge instructions, follow up and referral plans. medication usage, Demonstrated understanding of instructions, follow-up care, medications, Prescriptions given X 1, 18:05 Patient left the ED. ap3 Signatures: Dispatcher [employer] EDWhitney Stauffer RN RN ap3 Kassandra Tang RN RN ll1 Mel Alfaro, PA-Cristin PA-C sb4 Vonda Loredo mg5
--- NOTE | 2024-02-10 17:51 | EDPHYS ---
Physician Documentation [facility] Name: Ruel Muniz Age: 38 yrs Sex: Male : 1985 Arrival Date: 02/10/2024 Time: 15:29 Bed 8 Private MD: ED Physician Dragan Carrion HPI: 02/09 17:54 This 38 yrs old Male presents to ER via Ambulatory with complaints of Chest sb4 Tightness, anxiety. 17:54 Patient had right bicep tendon repair about 20 days ago, has cast intact. States that sb4 he has been experiencing tightness in his chest, restlessness, like he cannot take a deep breath. He states he had a similar occurrence a week ago and was seen here and had medicine that helped. He has not had any episodes since then. States he typically takes Adderall for his ADD, but has not been taking it since he has been at home and not working. He denies any official diagnosis of anxiety. Historical: - Allergies: 15:47 No Known Allergies; ll1 - PMHx: 15:47 ADD/ADHD; Hypertension; ll1 - PSHx: 15:47 arm (en); ll1 - Immunization history:: Adult Immunizations up to date. - Infectious Disease History:: Denies. - Social history:: Smoking status: Patient denies any tobacco usage or history of. ROS: 17:54 Constitutional: Negative for fever, chills, and weight loss, sb4 17:54 Cardiovascular: Positive for Chest tightness, 17:54 Respiratory: Positive for shortness of breath, 17:54 Psych: Positive for anxiety, 17:54 All other systems are negative, Exam: 17:54 Head/Face: Normocephalic, atraumatic. Eyes: Extra-ocular motions intact. Periorbital sb4 areas with no swelling, redness, or edema. ENT: Mucous membranes moist. Cardiovascular: Regular rate and rhythm with a normal S1 and S2. Respiratory: Lungs have equal breath sounds bilaterally, clear to auscultation and percussion. No rales, rhonchi or wheezes noted. No increased work of breathing, no retractions or nasal flaring. Abdomen/GI: Soft, non-tender, no distension. Skin: Warm, dry with normal turgor. Normal color with no rashes, no lesions, and no evidence of cellulitis. MS/ Extremity: Pulses equal, no cyanosis. Neurovascular intact. Full, normal range of motion. 17:54 Constitutional: The patient appears alert, awake, anxious, restless, 17:54 Psych: Behavior/mood is anxious, Vital Signs: 16:01 BP 142 / 83; Pulse 60; Resp 18; Temp 98.5; Pulse Ox 100% ; Pain 6/10; ll1 17:53 BP 128 / 90; Pulse 63; Resp 18; Pulse Ox 97% on R/A; ap3 16:01 Pain Scale: Adult ll1 MDM: 15:36 Patient medically screened. sb4 17:54 Data reviewed: vital signs, nurses notes, lab test result(s), EKG, radiologic studies, sb4 and as a result, I will discharge patient. Consideration of Admission/Observation Escalation of care including admission/observation considered. Counseling: I had a detailed discussion with the patient and/or guardian regarding the historical points, exam findings, and any diagnostic results supporting the discharge/admit diagnosis, lab results, radiology results, to return to the emergency department if symptoms worsen or persist or if there are any questions or concerns that arise at home. 02/09 16:17 Order name: Basic Metabolic Panel; Complete Time: 17:06 [facility] 02/09 16:17 Order name: CBC with Diff; Complete Time: 16:48 [facility] 02/09 16:17 Order name: D-Dimer; Complete Time: 17:12 [facility] 02/09 16:17 Order name: LFT's; Complete Time: 17:06 [facility] 02/09 16:17 Order name: Magnesium; Complete Time: 17:06 [facility] 02/09 16:17 Order name: NT PRO-BNP; Complete Time: 17:06 4 02/09 16:17 Order name: Troponin HS; Complete Time: 17:06 [facility] 02/09 16:17 Order name: XRAY Chest (1 view); Complete Time: 16:35 4 02/09 16:17 Order name: EKG; Complete Time: 16:18 sb4 02/09 16:17 Order name: Cardiac monitoring; Complete Time: 16:33 4 02/09 16:17 Order name: EKG - Nurse/Tech; Complete Time: 16:18 [facility] 02/09 16:17 Order name: IV Saline Lock; Complete Time: 16:33 sb4 02/09 16:17 Order name: Labs collected and sent; Complete Time: 16:33 sb4 02/09 16:17 Order name: O2 Per Protocol; Complete Time: 16:18 sb4 02/09 16:17 Order name: O2 Sat Monitoring; Complete Time: 16:18 sb4 EC:51 Rate is 61 beats/min. Rhythm is regular, Normal Sinus Rhythm. VA interval is normal at sb4 146 msec. QRS interval is normal at 92 msec. QT interval is normal at 418 msec. No Q waves. T waves are Normal. No ST changes noted. Clinical impression: Normal ECG and No evidence of ischemia. Interpreted by me. Reviewed by me. Administered Medications: 16:46 Drug: Ativan IVP 0.5 mg IVP once Route: IVP; Site: left antecubital; ap3 17:54 Follow up: Response: No adverse reaction; Anxiety decreased ap3 Disposition: 19:45 Co-signature as Attending Physician, Dragan Carrion MD I reviewed the patient's care rt provided by the Advanced Practice Provider and agree with the diagnosis and treatment plan. Disposition Summary: 02/10/24 17:50 Discharge Ordered Notes: Location: Home sb4 Problem: new sb4 Symptoms: have improved sb4 Condition: Stable sb4 Diagnosis - Anxiety disorder, unspecified sb4 Followup: sb4 - With: Private Physician - When: 2 - 3 days - Reason: Recheck today's complaints, Re-evaluation by your physician Discharge Instructions: - Discharge Summary Sheet sb4 - Managing Anxiety, Adult sb4 Forms: - Patient Portal Instructions sb4 - Leadership Thank You Letter sb4 Prescriptions: - Hydroxyzine HCl 50 mg Oral Tablet - take 1 tablet ORAL route every 8 hours As needed; 20 tablet; Refills: 0, sb4 Product Selection Permitted Signatures: Dispatcher [employer] Whitney Chavis RN RN ap3 Kassandra Tang RN RN ll1 Mel Alfaro PA-C PA-C sb4 Dragan Carrion MD MD rt
[2024-02-11 01:25] VITALS: BP 128/90; TEMP 98.5; O2SAT 97
--- NOTE | 2024-02-11 13:04 | EKG ---
Test Date: 2024-02-10 Test Time: 15:39:52 Geotechnical Engineer: JESUS MEASUREMENT RESULTS: Intervals: Rate: 61 HI: 146 QRSD: 92 QT: 418 QTc: 420 [place]: P: 30 HI: 146 QRS: 70 T: -8 INTERPRETIVE STATEMENTS: Normal sinus rhythm with sinus arrhythmia Normal ECG Compared to ECG 01/26/2024 13:57:52 No significant changes Electronically Signed On 02-11-24 13:02:59 CDT by Angel Schneider
== END 2024-02-10 18:05 | disposition home or self-care (01) ==
LOC: ER 15:29
DX: F41.9 Anxiety disorder, unspecified (principal); I10 Essential (primary) hypertension; F90.9 Attention-deficit hyperactivity disorder, unspecified type
CPT/HCPCS: 36415; 71045; 80048; 80076; 83735; 83880; 84484; 85025; 85379; 93005; 96374; 99285